=== PATIENT | female | born 1975 | race Caucasian/White ===

== ENCOUNTER 2016-08-26 02:54 | Observation (INO) | payer MEDICARE, MEDICAID ==
[~2016-08-26 02:54] MED LIST: ALBUTEROL17 GM; ALBUTEROL17 GM INH; ANUSOL HC25 MG/SUPP PR; AUGMENTIN 875-11 TAB PO; BACTROBAN22 GM TP; CIPRO500 M1 PO; CLARITIN10 MG; CORTISPORIN EAR10 M RIGHT EAR; FLONASE16 GM NS; FLOXIN10 ML OT; GLIMEPIRIDE; GLUCOPHAGE XR500 MG; GLUCOPHAGE1000 MG PO; GLYBURIDE2.5 MG PO; GLYBURIDE5 MG PO; HYDROXYZINE HCL25 MG PO; IBUPROFEN200 M1 PO; IMIPRAMINE HCL50 MG PO; LEVOTHROID100 MCG; LEVOTHYROXINE100 MCG PO; LEXAPRO20 MG; LEXAPRO20 MG PO; LOPERAMIDE2 MG PO; LORATADINE10 M1 PO; PREDNISONE20 MG PO; RANITIDINE HCL150 MG; ZANTAC150 MG PO
[2016-08-26] MEDS ORDERED: CRESTOR20 M1 PO (02:58)
[2016-08-26] MEDS ORDERED: CARVEDILOL12.5 M1 PO (02:59)
[2016-08-26 03:32] LABS: URINE BILIRUBIN NEGATIVE (NEG); URINE BLOOD NEGATIVE (NEG); URINE GLUCOSE (UA) NEGATIVE (NEG); URINE KETONE NEGATIVE (NEG); URINE LEUKOCYTE ESTERASE NEGATIVE (NEG); URINE NITRITE NEGATIVE (NEG); URINE PROTEIN NEGATIVE (NEG); URINE SPECIFIC GRAVITY 1.025 (1.003-1.030)
[2016-08-26 03:34] LABS: URINE APPEARANCE CLEAR; URINE COLOR YELLOW
[2016-08-26 05:09] LABS: BASO % 0.4 % (0-2); EOS % 1.4 % (0-7); EOSINOPHIL ABSOLUTE COUNT 0.1 tho/cmm (0.0-0.7); HCT-HEMATOCRIT 39.4 % (34.0-49.0); HGB-HEMOGLOBIN 12.4 gm/dl (12.0-15.5); IMMATURE GRANULOCYTES ABSOLUTE 0.03 tho/cmm (0-0.03); IMMATURE GRANULOCYTES PERCENT 0.3 % (0-0.3); LYMPH % 38.5 % (20-45); LYMPH ABSOLUTE COUNT 3.7 tho/cmm (0.8-4.5); MCH (MEAN CORPUSCULAR HGB) 27.5 pg (28.0-32.0); MCHC MEAN CORPUSCULAR HGB CONC 31.5 % (32.0-36.0); MCV (MEAN CELL VOLUME) 87.4 fl (82.0-96.0); MEAN PLATELET VOLUME 9.4 cmc (9.4-12.4); MONO % 10.2 % (0-12); NEUTROPHIL ABSOLUTE COUNT 4.7 tho/cmm (1.6-8.0); NEUTROPHIL-AUTOMATED 4.7 tho/cmm (1.6-8.0); NEUTROPHILS % 49.2 % (40-80); PLATELET COUNT 359 tho/cmm (150-450); RED BLOOD COUNT 4.51 mil/cmm (4.00-5.20); RED CELL DISTRIBUTION WIDTH 14.7 % (12.4-16.4); WHITE BLOOD COUNT 9.6 tho/cmm (4.0-10.0)
[2016-08-26 05:11] LABS: ALB/GLOB RATIO 0.8 (0.8-2.0); ALBUMIN 3.4 g/dl (3.5-5.0); ALKALINE PHOSPHATASE 89 U/L (33-138); ALT/SGPT 19 U/L (12-78); ANION GAP 11 mmol/L (0-20); AST/SGOT 13 U/L (10-40); BILIRUBIN,TOTAL 0.5 mg/dl (0-1.5); BLOOD UREA NITROGEN 15 mg/dl (6-24); CALCIUM 8.9 mg/dl (8.5-10.5); CARBON DIOXIDE-VENOUS 28 mmol/L (22-32); CHLORIDE 104 mmol/l (96-110); CREATININE 0.78 mg/dl (0.50-1.10); GLUCOSE 106 mg/dL (70-110); POTASSIUM 3.6 mmol/L (3.7-5.1); SODIUM 139 mmol/L (135-145); eGFR VALUE FOR BLACK >90 mL/Min
[2016-08-26 08:24] LABS: TSH-THYROID STIMULATING HORM. 1.08 uIU/ml (0.40-3.80)
[2016-08-26 19:05] LABS: AMYLASE 17 U/L (20-90); LIPASE 127 U/L (73-393)
[2016-08-26 19:23] LABS: C-REACTIVE PROTEIN <0.3 mg/dl (0-0.9)
[2016-08-27] MEDS ORDERED: ASPIRIN81 M1 PO (10:33)
== END 2016-08-27 12:17 ==
LOC: EDMED 02:54 → EMR2 06:01 → CCU 07:35 → CAR1 12:00
PROVIDERS: Emergency Medicine; Internal Medicine; Physician Assistant Medical; ADMIT Internal Medicine Cardiovascular Disease
DX: R07.9 Chest pain, unspecified (principal); R10.11 Right upper quadrant pain; R94.31 Abnormal electrocardiogram [ECG] [EKG]; I99.8 Other disorder of circulatory system; I10 Essential (primary) hypertension; E11.9 Type 2 diabetes mellitus without complications; E78.5 Hyperlipidemia, unspecified; F32.9 Major depressive disorder, single episode, unspecified; E03.9 Hypothyroidism, unspecified; K21.9 Gastro-esophageal reflux disease without esophagitis; J45.909 Unspecified asthma, uncomplicated; Z77.22 Contact with and (suspected) exposure to environmental tobacco smoke (acute) (chronic); Z79.84 Long term (current) use of oral hypoglycemic drugs; Z79.899 Other long term (current) drug therapy; Z82.49 Family history of ischemic heart disease and other diseases of the circulatory system; Z98.51 Tubal ligation status; Z98.890 Other specified postprocedural states
CPT/HCPCS: A9500; G0378; J1650; J2270